=== PATIENT | female | born 1950 ===

== ENCOUNTER 2023-10-31 18:02 | Emergency (ER) | payer MEDICARE, MEDICAID ==
[2023-10-31] MEDS: Ketorolac 30 MG/ML SDV IM ONE (18:48)
[2023-10-31] MEDS: Metoprolol Succinate 25 MG Tab.ER PO ONE (18:54)
[2023-10-31] MEDS: Gabapentin 300 MG Cap PO ONE (18:55)
== END 2023-10-31 19:05 | disposition home or self-care (01) ==
LOC: MERGE 18:02 → DL.ED 18:02
DX: M54.50 Low back pain, unspecified (principal); G89.29 Other chronic pain; F17.210 Nicotine dependence, cigarettes, uncomplicated; Z79.82 Long term (current) use of aspirin; Z79.899 Other long term (current) drug therapy; Z88.0 Allergy status to penicillin; Z91.030 Bee allergy status
CPT/HCPCS: 96372; 99283; A9270; J1885